=== PATIENT | male | born 1970 ===

== ENCOUNTER 2017-09-11 23:34 | Emergency (ER) | payer SELFPAY ==
[2017-09-12] MEDS ORDERED: Sodium Chloride 0.9% 1,000 ML IV ONE (00:34)
[2017-09-12] MEDS ORDERED: GI Cocktail Oral Solution 30 ML PO ONE (00:41)
[2017-09-12] MEDS ORDERED: Pantoprazole 40 MG Vial IVPUSH ONE (00:42)
[2017-09-12] MEDS ORDERED: Ketorolac 30 MG/ML SDV IVPUSH ONE (00:42)
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
== END 2017-09-12 02:00 ==
LOC: LL.ED 23:34
DX: R10.13 Epigastric pain (principal); G89.29 Other chronic pain; R13.10 Dysphagia, unspecified; K21.9 Gastro-esophageal reflux disease without esophagitis; F17.210 Nicotine dependence, cigarettes, uncomplicated; Z98.890 Other specified postprocedural states
CPT/HCPCS: 36415; 80305; 82150; 83690; 84484; 85025; 96361; 96374; 96375; 99284; A9270; C9113; J1885; J7030

== ENCOUNTER 2018-07-11 00:01 | Emergency (ER) | payer SELFPAY ==
[2018-07-11] MEDS ORDERED: Sodium Chloride 0.9% 10 ML Syringe FLUSH PRN (00:27)
[2018-07-11] MEDS ORDERED: Sodium Chloride 0.9% 1,000 ML IV ONE (00:28)
[2018-07-11] MEDS ORDERED: Ondansetron 4 MG/2 ML SDV IVPUSH ONE ×2 (00:29→01:10)
[2018-07-11] MEDS ORDERED: Morphine 10 MG/ML Syringe IVPUSH ONE (00:29)
[2018-07-11 00:37] LABS: CHLORIDE,CL 104 mmol/L (98-107); SODIUM,NA 141 mmol/L (136-145)
[2018-07-11] MEDS ORDERED: LORazepam 2 MG/ML SDV IVPUSH ONE (00:42)
[2018-07-11] MEDS ORDERED: LORazepam 1 MG Tab PO ONE (01:09)
[2018-07-11] MEDS ORDERED: Ketorolac 30 MG/ML SDV IVPUSH ONE (01:10)
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
== END 2018-07-11 01:45 ==
LOC: LL.ED 00:01
DX: R10.11 Right upper quadrant pain (principal); F15.129 Other stimulant abuse with intoxication, unspecified; I10 Essential (primary) hypertension; F17.210 Nicotine dependence, cigarettes, uncomplicated
CPT/HCPCS: 36415; 80053; 80305-QW; 81001; 82150; 83690; 85025; 96374; 96375; 99285; A9270-GY; J1885; J2405; J7050